=== PATIENT | male | born 1965 | race Caucasian/White ===

== ENCOUNTER → 2020-06-01 | Outpatient (CLI) | payer OTHER ==
[~2020-06-01] MED LIST: METHACHOLINE KIT (J7674) INH ONE
== END ==
LOC: M CARPUL 10:38
PROVIDERS: ATTEND Internal Medicine Pulmonary Disease
DX: Z53.9 Procedure and treatment not carried out, unspecified reason (principal)

== ENCOUNTER → 2020-06-22 | Outpatient (CLI) | payer OTHER ==
--- NOTE | 2020-06-22 09:37 | PFTRPT ---
Height: 70.00 Inches Weight: 262.00 Lbs BSA: 2.34 Diagnosis: R05 DATE: 06/22/2020 ORDERED BY: Fabien Alexandra M.D. QUALITY: Study of excellent technical quality. PROCEDURE: Under protocol, methacholine was administered. Even after a maximal dose of 25 mg or 188.875 CDUs, no provocation dose ever achieved. IMPRESSION: Negative methacholine challenge study. MTDD
== END ==
LOC: M CARPUL 08:28
PROVIDERS: ATTEND Internal Medicine Pulmonary Disease
DX: R05 Cough (principal)
CPT/HCPCS: 94070; J7674